=== PATIENT | female | born 1980 | race Hispanic/Latino ===

== ENCOUNTER 2017-01-02 03:22 | Inpatient (IN) | payer OTHER ==
[2017-01-02] VITALS (11 sets, daily range): BP systolic 136–157; BP diastolic 75–94
[~2017-01-02] VITALS: Ht 149.9 cm; Wt 94.8 kg
[~2017-01-02 03:22] MED LIST: FLEXERIL OR; NO; PERCOCET 5/325M1 TAB PO; PRENATABS RX PO
--- NOTE | 2017-01-02 03:31 | NUR ---
PT ARRIVED WITH C/O CONTRACTIONS 07/30. PT NEEDS COACHING TO BREATH THROUGH CONTRACTIONS. PT CHANGED INTO GOWN AND ATTEMPTED TO VOID. SIGNIFICANT OTHER AT BEDSIDE. SVE PERFORMED /+3 INTACT. EFM REMOVED. PT TRANSPORTED ON BED TO BIRTHING ROOM 1.
--- NOTE | 2017-01-02 03:36 | NUR ---
ENTERED BIRTHING ROOM 1 0335. PT STATES BABY IS COMING. NOTED TO BE ON PERINEUM UP TO EYES. GLOVED APPLIED. INFANT DELIVERED UP TO SHOULDERS. NOTED NUCHAL X1. ENCOURAGED PT NOT TO PUSH TO REDUCE. PT PUSHED THROUGH NUCHAL. DELIVERED AT 0336. PLACED ON MOTHER'S ABDOMEN. INFANT DRIED AND STIMULATED TO BREATH. SPONTANEOUS CRY NOTED. AWAITING PLACENTA. INFANT AND MOTHER IN STABLE CONDITION.
--- NOTE | 2017-01-02 03:58 | NUR ---
0337 ED NOTIFIED OF DELIVERY. DR. BRADY NOTIFIED OF NURSE DELIVERY AND AWAITING PLACENTA DELIVERY AT 0342. DR. BRADY EN ROUTE. PLACENTA DELIVERED INTACT AT 0344. PITOCIN 10 UNITS OF IM DELIVERED LEFT THIGH. DR. BRADY AT BEDSIDE AT 0358. PERINEUM INTACT BY MD EVALUATION.
--- NOTE | 2017-01-02 05:28 | NUR ---
PT OOB TO BR AT 0510 TO VOID. PT TOLERATED WELL. NO VOID AT THIS TIME. ENCOURAGED PT TO ATTEMPT TO VOID EVERY 2-3 HOURS AND PERFORM ASH CARE. EDCATED PT THAT BLEEDING WILL BE LIKE HEAVY PERIOD WITH SMALL CLOTS AND TO CALL IF SATURATES A PAD IN AN HOUR OR PASSES A CLOT BIGGER THEN A GOLF BALL. ASH CARE PROVIDED. GOWN CHANGED. PT AMBULATES TO WINDOW TO NURSURY TO WATCH INFANT BE WEIGHED. PT TO ROOM 203 AT 0528 IN STABLE CONDITION. PT C/O PAIN- WILL MEDICATED PER ORDERS. ICE WATER AND JUICE PROVIDED. PT'S MOTHER AND SPOUSE AT BEDSIDE.
--- NOTE | 2017-01-02 07:30 | NUR ---
REST IN BED, WANTS TO SLEEP, NO REQUESTS, ALLOWED TO REST.
--- NOTE | 2017-01-02 08:54 | NUR ---
SITS IN BED FEEDING , FINISHED BRESAKFAST, JUICE PROVIDED.
--- NOTE | 2017-01-02 09:50 | NUR ---
OOB TO VOID, ASH CARE DONE, BACK TO BED W/O PROBLEM.
--- NOTE | 2017-01-02 11:30 | NUR ---
OOB IN ROOM CARING FOR INFANT, TALKING WITH FAMILY.
--- NOTE | 2017-01-02 14:30 | NUR ---
SITS QUIETLY IN BED, TALKS WITH VISITORS.
--- NOTE | 2017-01-02 17:10 | NUR ---
RESTS IN BED, S/O IN ROOM. NO REQUESTS.
--- NOTE | 2017-01-02 18:45 | NUR ---
REVIEWED WITH PT HOW TO VIEW EDUCATIONAL VIDEOS AND READ DISCHARGE PLAN INFORMATION FOR HERSELF AND . PT DENIES H/A, DENIES VISUAL DISTURBANCE.
--- NOTE | 2017-01-02 19:00 | NUR ---
ASSUMED CARE OF PT. REPORT RECEIVED FROM Rajat MCKINNON RN.
--- NOTE | 2017-01-02 19:30 | NUR ---
ASSESSMENT COMPLETED CHARTED. BP 142/88, PT DENIES ANY C/O HEADACHE, VISUAL DISTURBANCES, OR EPIGASTRIC DISCOMFORT. NON-PITTING EDEMA PRESENT IN BOTH LOWER EXTREMETIES, PULSES STRONG, NEGATIVE HOMANS, NO CLONUS PRESENT. BREAST SOFT, SMALL AMOUNT OF ECCHYMOSIS PRESENT AROUND LT NIPPLE FROM . PT IS VOIDING AND PERFORMING SELF PERICARE WITHOUT DIFFICULTY; + BM; CARING FOR INFANT APPROPRIATELY, POSITIVE BONDING OBSERVED. PT DENIES ANY C/O DISCOMFORT AT THIS TIME. PT ENCOURAGED TO VIEW INSTRUCTIONAL VIDEOS AND READ D/C PLANNING PAPERS; VERBALIZED UNDERSTANDING. CALLBELL WITHIN REACH.
--- NOTE | 2017-01-02 20:50 | NUR ---
PT C/O ABD. CRAMPING, RETING PAIN LEVEL AT 4:10, MEDICATED ORDERED WITH MOTRIN 600 MG PO. PT NOW SITTING UP IN BED VIEWING INSTRUCTIONAL VIDEOS.
--- NOTE | 2017-01-02 22:00 | NUR ---
PT NOW RESTING QUIETLY IN BED WITH IN ARMS. VERBALIZED RELIEF OF PAIN FROM MOTRIN GIVEN EARLIER. OFFERS NO FURTHER C/O DISCOMFORT AT THIS TIME. CONTINUES VIEWING VIDEOS.
--- NOTE | 2017-01-02 23:18 | NUR ---
D/C PLANNING PAPERS FOR "MOTHER" WERE REVIEWED WITH PT AND PAPERS SIGNED. PT STATES THAT SHE WILL READ D/C PLANNING PAPERS FOR BABY IN AM.
--- NOTE | 2017-01-02 23:55 | NUR ---
PT SITTING UP IN BED BOTTLEFEEDING . DENIES ANY C/O DISCOMFORT AT THIS TIME.
--- NOTE | 2017-01-03 02:30 | NUR ---
CONTINUES RESTING QUIELTY IN BED. CARING FOR APPROPORIATELY. DENIES ANY C/O DISCOMFORT AT THIS TIME.
--- NOTE | 2017-01-03 04:20 | NUR ---
PT SITTING UP IN BED BOTTLEFEEDING , DENIES ANY C/O DISCOMFORT AT THIS TIME.
[2017-01-03 06:09] LABS: HEMATOCRIT 36.9 % (37.0-47.0); HEMOGLOBIN 12.4 g/dl (12.0-16.0); IMMATURE GRANULOCYTES 0.6 % (0.0-1.0); MEAN CELL VOLUME 91.1 fL CALC (80.0-100.0); MEAN CORPUSCULAR HGB 30.6 pG CALC (26.0-32.0); MEAN CORPUSCULAR HGB CONC 33.6 g/L CALC (32.0-36.0); NEUT# 7.45 thou/uL (2.00-7.15); RED BLOOD COUNT 4.05 mill/uL (4.20-5.60); RED CELL DISTRI WIDTH 14.6 % (11.5-15.5)
[2017-01-03 06:10] VITALS: BP 148/92
--- NOTE | 2017-01-03 06:10 | NUR ---
VS CHARTED: T.97.0, P. 91, R. 20, BP 148/92, O2 SAT 98%. PT DENIES ANY C/O HEADACHE, VISUAL DISTURBANCES, OR EPIGASTRIC DISCOMFORT. DENIES ANY C/O DISCOMFORT AT THIS TIME. DEFENSE ANALYST WAS ON UNIT TO DRAW BLOOD FOR CBC.
--- NOTE | 2017-01-03 06:55 | NUR ---
REPORT GIVEN TO Yuval NEAL RN. PT CONTINUES RESTING QUIELTY IN BED. CARING FOR APPROPRIATELY THROUGHOUT SHIFT.
--- NOTE | 2017-01-03 08:18 | NUR ---
ASSESSMENT CHARTED; PATIENT DENIES ANY PAIN OR NEEDS AT THIS TIME. DR. BRADY IN TO SEE PATIENT.
--- NOTE | 2017-01-03 10:41 | NUR ---
DISCHARGE TEACHING REVIEWED WITH PATIENT AND PATIENT VERBALIZED UNDERSTANDING AND NO QUESTIONS OR CONCERNS AT THIS TIME.
--- NOTE | 2017-01-03 11:15 | NUR ---
TDAP VACCINE AND DEPO SHOT ADMINISTERED TO PATIENT REQUESTED; PATIENT TOLERATED WELL AND DENIES ANY PAIN AT THIS TIME. CRANBERRY JUICE PROVIDED FOR PATIENT REQUESTED.
--- NOTE | 2017-01-03 12:38 | NUR ---
PATIENT SITTING IN BED WITH SIGNIFICANT OTHER BEDSIDE; PATIENT DENIES ANY PAIN OR NEEDS AT THIS TIME.
--- NOTE | 2017-01-03 13:55 | NUR ---
Discharge instructions given and reviewed. Pt. verbalizes understanding. Discharged in stable condition via Wheelchair to Home accompanied by volunteer.
== END 2017-01-03 13:55 | disposition home or self-care (01) | DRG 775 ==
LOC: OB 03:22 → OBOP 03:22 → OB 03:35
PROC: 10E0XZZ Delivery of Products of Conception, External Approach (ICD-10-PCS; principal; 2017-01-02)
DX: O62.3 Precipitate labor (principal); Z37.0 Single live birth; Z3A.38 38 weeks gestation of pregnancy

== ENCOUNTER 2018-05-03 10:27 | Emergency (ER) | payer BC ==
[~2018-05-03] VITALS: Ht 149.9 cm; Wt 95.0 kg
[2018-05-03] MEDS ORDERED: BACTRIM DS1 TAB PO (11:02)
[2018-05-03] MEDS ORDERED: ADVANCED E PO (11:03)
[2018-05-03] MEDS ORDERED: PEPCID20 MG PO (11:39)
[2018-05-03] MEDS ORDERED: MEDDOSEPAK PO (11:39)
[2018-05-03] MEDS ORDERED: BENADRYL 50MG C50 MG PO (11:39)
[2018-05-03 11:50] VITALS: BP 154/75
== END 2018-05-03 11:50 | disposition home or self-care (01) | DRG 916 ==
LOC: ED 10:27
DX: T78.40XA Allergy, unspecified, initial encounter (principal); X58.XXXA Exposure to other specified factors, initial encounter

== ENCOUNTER 2020-05-25 15:25 | Observation (INO) | payer MEDICAID ==
[~2020-05-25] VITALS: Ht 149.9 cm; Wt 75.2 kg
[~2020-05-25 15:25] MED LIST changes: +ADVANCED E PO; +BACTRIM DS1 TAB PO; +BENADRYL 50MG C50 MG PO; +MEDDOSEPAK PO; +PEPCID20 MG PO
[2020-05-25] MEDS ORDERED: CLEOCIN300 MG PO (15:55)
[2020-05-25] MEDS ORDERED: MOTRIN800 MG PO (15:55)
[2020-05-25 17:27] LABS: HEMATOCRIT 36.9 % (37.0-47.0); IMMATURE GRANULOCYTES 0.2 % (0.0-5.0); MEAN CELL VOLUME 88.9 fL CALC (80.0-100.0); MEAN CORPUSCULAR HGB 28.9 pG CALC (26.0-32.0); MEAN CORPUSCULAR HGB CONC 32.5 g/dL CAL (32.0-36.0); NEUT# 7.75 thou/uL (2.00-7.15); RED BLOOD COUNT 4.15 mill/uL (4.20-5.60); RED CELL DISTRI WIDTH 12.8 % (11.5-15.5)
[2020-05-25 17:54] LABS: ANION GAP 12 (6-22 (CALC)); BUN 9 mg/dL (7-17); BUN/CREATININE RATIO 20 (12-20 (CALC)); CARBON DIOXIDE 25 mmol/l (22-30); CHLORIDE 103 mmol/l (95-108); CREATININE 0.5 mg/dL (0.5-1.0); GFR > 60 ML/MIN (>=60 (CALC)); GFR FOR AFR.AMER. > 60 ML/MIN (>=60 (CALC)); POTASSIUM 3.5 mmol/l (3.5-5.1); SODIUM 136 mmol/l (137-146)
[2020-05-25 18:20] VITALS: BP 112/75
[2020-05-26 04:46] VITALS: BP 116/82
[2020-05-26 05:26] LABS: HEMOGLOBIN 11.5 g/dl (12.0-16.0); IMMATURE GRANULOCYTES 0.2 % (0.0-5.0); MEAN CELL VOLUME 89.6 fL CALC (80.0-100.0); MEAN CORPUSCULAR HGB 28.6 pG CALC (26.0-32.0); MEAN CORPUSCULAR HGB CONC 31.9 g/dL CAL (32.0-36.0); NEUT# 6.86 thou/uL (2.00-7.15); RED BLOOD COUNT 4.02 mill/uL (4.20-5.60); RED CELL DISTRI WIDTH 12.8 % (11.5-15.5)
[2020-05-26 05:57] LABS: ANION GAP 9 (6-22 (CALC)); BUN 10 mg/dL (7-17); BUN/CREATININE RATIO 24 (12-20 (CALC)); CARBON DIOXIDE 23 mmol/l (22-30); CHLORIDE 108 mmol/l (95-108); CREATININE 0.4 mg/dL (0.5-1.0); GFR > 60 ML/MIN (>=60 (CALC)); GFR FOR AFR.AMER. > 60 ML/MIN (>=60 (CALC)); POTASSIUM 3.8 mmol/l (3.5-5.1); SODIUM 137 mmol/l (137-146)
[2020-05-26 08:06] VITALS: BP 119/84
[2020-05-26] MEDS ORDERED: CLINDAMYCIN HY300 MG (12:23)
[2020-05-26 15:54] VITALS: BP 117/79
[2020-05-26 19:28] VITALS: BP 122/84
[2020-05-27 05:04] VITALS: BP 125/82
[2020-05-27 10:04] VITALS: BP 115/79
[2020-05-27 16:05] VITALS: BP 112/75
[2020-05-27 20:20] VITALS: BP 120/79
[2020-05-28 04:00] VITALS: BP 128/81
[2020-05-28 08:19] VITALS: BP 119/79
[2020-05-28] MEDS ORDERED: LORTAB5 PO ×2 (11:30→14:55)
[2020-07-18] MEDS ORDERED: CIPROFLOXACN500 MG PO (09:21)
== END 2020-05-28 13:45 | disposition home or self-care (01) ==
LOC: ED 15:25 → ED-I 16:50 → ED 17:03 → ED-I 17:04 → MS2 17:04
PROVIDERS: Student in an Organized Health Care Education/Training Program; ADMIT Internal Medicine; ATTEND Internal Medicine
DX: N61.1 Abscess of the breast and nipple (principal); R92.8 Other abnormal and inconclusive findings on diagnostic imaging of breast; Z11.59 Encounter for screening for other viral diseases
CPT/HCPCS: G0378; J3370

== ENCOUNTER 2021-10-23 14:14 | Observation (INO) | payer MEDICAID ==
[~2021-10-23] VITALS: Ht 149.9 cm; Wt 70.0 kg
[~2021-10-23 14:14] MED LIST changes: +CIPROFLOXACN500 MG PO; +CLEOCIN300 MG PO; +CLINDAMYCIN HC150 MG PO; +CLINDAMYCIN HY300 MG; +LORTAB5 PO; +MOTRIN800 MG PO
--- NOTE | 2021-10-23 15:10 | NUR ---
PT ESCORTED TO ROOM FOR EVAL OF BREAST PAIN
--- NOTE | 2021-10-23 16:10 | NUR ---
PT SITTING IN RM AWAITING RESULTS. CALL LIGHT WITHIN REACH.
[2021-10-23 17:00] LABS: URINE BILIRUBIN - DIPSTICK NEGATIVE (NEGATIVE); URINE BLOOD DIPSTICK TRACE-INTACT (NEGATIVE); URINE COLOR YELLOW; URINE GLUCOSE - DIPSTICK NEGATIVE (NEGATIVE); URINE KETONE NEGATIVE (NEGATIVE); URINE LEUK ESTERASE NEGATIVE (NEGATIVE); URINE PH 6.5 (4.5-8.0); URINE PROTEIN - DIPSTICK NEGATIVE (NEG-TRACE); URINE UROBILINOGEN - DIPSTICK 0.2 E.U./dL (0.2)
[2021-10-23 17:02] LABS: URINE NITRITE - DIPSTICK NEGATIVE (Negative)
--- NOTE | 2021-10-23 17:10 | NUR ---
PT SITTING IN RM AWAITING RESULTS. CALL LIGHT WITHIN REACH.
[2021-10-23 17:49] LABS: HEMATOCRIT 37.5 % (37.0-47.0); HEMOGLOBIN 12.5 g/dl (12.0-16.0); IMMATURE GRANULOCYTES 0.2 % (0.0-5.0); MEAN CELL VOLUME 90.1 fL CALC (80.0-100.0); MEAN CORPUSCULAR HGB CONC 33.3 g/dL CAL (32.0-36.0); NEUT# 8.69 thou/uL (2.00-7.15); RED BLOOD COUNT 4.16 mill/uL (4.20-5.60); RED CELL DISTRI WIDTH 12.2 % (11.5-15.5)
--- NOTE | 2021-10-23 18:10 | NUR ---
PT SITTING IN RM AWAITING RESULTS. CALL LIGHT WITHIN REACH.
[2021-10-23 18:13] LABS: ALBUMIN 3.9 g/dL (3.2-5.0); ALKALINE PHOSPHATASE 139 u/l (38-126); ANION GAP 9 (6-22 (CALC)); BILIRUBIN, TOTAL 0.5 mg/dL (0.0-1.4); BUN 8 mg/dL (7-17); BUN/CREATININE RATIO 17 (12-20 (CALC)); CARBON DIOXIDE 26 mmol/l (22-30); CHLORIDE 108 mmol/l (95-108); CREATININE 0.5 mg/dL (0.5-1.0); GFR > 60 ML/MIN (>=60 (CALC)); GFR FOR AFR.AMER. > 60 ML/MIN (>=60 (CALC)); POTASSIUM 3.5 mmol/l (3.5-5.1); SGOT/AST 29 u/l (14-36); SODIUM 140 mmol/l (137-146); TOTAL PROTEIN 7.7 g/dL (6.3-8.2)
--- NOTE | 2021-10-23 19:10 | NUR ---
PT SITTING IN RM AWAITING RESULTS. CALL LIGHT WITHIN REACH.
--- NOTE | 2021-10-23 20:10 | NUR ---
PT SITTING IN RM AWAITING ADMISSION AT THIS TIME. CALL LIGHT WITHIN REACH.
--- NOTE | 2021-10-23 20:48 | NUR ---
Admission Note Report Given to: GENARO WRIGHT Transported by: X Wheelchair Stretcher Transported with: X Nurse Transporter X Patent IV O2 Sql Application Developer Location: X ICU MS2
[2021-10-23 21:03] VITALS: BP 143/89
--- NOTE | 2021-10-23 21:03 | NUR ---
PT ARRIVED TO FLOOR VIA WHEELCHAIR ACCOMPAINED BY ER STAFF. PT ADMITTED WITH LEFT BREAST ABSCESS. REDNESS NOTED AROUND PT AREOLA WITH DIPPLING INWARD OF NIPPLE, AREA PAINFUL AND WARM TO TOUCH. PT TEARFUL. CURRENT PAIN LEVEL 8/10 WITH MINIMAL RELIEF FROM LORTAB GIVEN IN ED. NOTIFIED DR. RUIZ ORDERS RECEIVED AT THIS TIME, WILL MEDICATE WHEN MEDICATIONS AVAILABLE. IV SITE APPEARS HEALTHY, FLUSHED WELL. PT IS ALERT AND ORIENTED X4. SKIN INTACT. PT AMBULATED INDEPENDENTLY WITH STEADY GAIT. PT ORIENTED TO ROOM AND CALL LIGHT SYSTEM. DISCUSSED POC AND NPO AFTER MIDNIGHT, PT VERBALIZED UNDERSTANDING. CALL LIGHT WITHIN REACH. WILL CONTINUE TO MONITOR.
--- NOTE | 2021-10-23 21:30 | NUR ---
PRN DILUADID PROFILED AND PT DECLINED AT THIS TIME. EDUCATED PT ON REPORTING PAIN AND PAIN MANAGEMENT. PT VERBALIZED UNDERSTANDING. NOT APPARENT DISTRESS NOTED. RESPIRATIONS EVEN AND UNLABORED. CALL LIGHT WITHIN REACH. WILL CONTINUE TO MONITOR.
[2021-10-24] VITALS (11 sets, daily range): BP systolic 114–153; BP diastolic 68–90
--- NOTE | 2021-10-24 00:12 | NUR ---
PT RESTING IN BED WITH EYES CLOSED. PT WAKES EASILY. DENIES ANY PAIN OR DISCOMFORT AT THIS TIME. NO APPARENT DISTRESS NOTED. IV ABT INITIATED. CALL LIGHT WITHIN REACH. WILL CONTINUE TO MONITOR.
--- NOTE | 2021-10-24 02:35 | NUR ---
PT NOTED RESTING IN BED WITH EYES CLOSED. NPO AT THIS TIME. NO APPARENT DISTRESS NOTED. IVF INFUSING WITHOUT DIFFICULTY. CALL LIGHT WITHIN REACH. WILL CONTINUE TO MONITOR.
--- NOTE | 2021-10-24 06:20 | NUR ---
PT RESTING IN BED. NO APPARENT DISTRESS NOTED. PT ASKED IF SHE WAS HAVING ANY PAIN AND PT STATES "I'M FINE". IV ABT INITIATED. PT DENIES ANY CURRENT WANTS OR NEEDS. PT REMAINS NPO. CALL LIGHT WITHIN REACH. WILL CONTINUE TO MONITOR. PT ALSO MADE AWARE OF ROOM ASSIGNMENT ON MEDSURG UNIT FOLLOWING PROCEDURE. PT VERBALIZED UNDERSTANDING.
--- NOTE | 2021-10-24 09:27 | NUR ---
PT ARRIVED FROM PACU. BEDSIDE REPORT RECIEVED FROM AYANNA ALDRICH. PT DENIES PAIN. DRAINAGE PRESENT ON DRESSING, MARKED. NO S/S OF DISTRESS NOTED
--- NOTE | 2021-10-24 14:00 | NUR ---
PT RESITNG IN BED, DENIES NEEDS AT THIS TIME.
--- NOTE | 2021-10-24 18:10 | NUR ---
DRESSING CHANGE COMPLETED PER ORDER. WET TO DRY, 1 GUAZE 4X4 USED FOR PACKING, WITH ABD PAD PLACED AND SECURED OVER.
--- NOTE | 2021-10-24 19:30 | NUR ---
Received report from AYANNA Schwarz. Assumed care of patient. Patient is laying in bed in high adams, resting with no s/s of distress or discomfort, no c/o pain at this time, but very drowsy. Will continue to monitor.
--- NOTE | 2021-10-24 23:31 | NUR ---
PATIENT LAYING IN BED RESTING, STILL DROWSY AND NO C/O PAIN. NO S/S OF DISTRESS OR DISCOMFORT NOTED, WILL CONTINUE TO MONITOR.
[2021-10-25] VITALS: BP 133/84; BP 133/88
[2021-10-25 04:00] VITALS: BP 132/81
--- NOTE | 2021-10-25 05:30 | NUR ---
PT PRE-MEDICATED FOR PAIN 45 MINS PRIOR TO PERFORMING DRESSING CHANGES FOR COMFORT. OLD DRESSING REMOVED (ABD PAD & 1 4X4 GUAZE PACKING) MODERATE AMOUNT OF SEROSANGUINEOUS DRAINAGE NOTED ON DRESSING, NO ODOR NOTED. SITE CLEANSED WITH NS AND PATTED DRY. DRESSING CHANGE COMPLETED PER ORDER, WOUND PACKED WITH ABCESS PACKED WITH 1 4X4 WET TO DRY & SITE COVERED WITH AN ABD PAD. PT TOLERATED PROCEDURE WELL.
--- NOTE | 2021-10-25 08:00 | NUR ---
SHIFT CHANGE REPORT, PT AWAKE ALERT AND ORIENTED RESTING IN BED, DENIES PAIN, DRESSING TO LEFT BREAST CDI, IVF INFUSING TO SITE IN LAC, DIET NEEDS DISCUSSED, CALL MENDOZA IN REACH AND LOCKED IN LOWEST POSITION.
--- NOTE | 2021-10-25 10:00 | NUR ---
DR SARA ARCHIBALD, DISCUSSED PLAN OF CARE, PT STATED UNDERSTANDING, HE ALSO SAID PT MAY REMOVE DRESSING AND SHOWER THEN REPLACE DRESSING.
[2021-10-25] MEDS ORDERED: PERCOCET 5/325M1 TAB PO (10:05)
[2021-10-25] MEDS ORDERED: CLINDAMYCIN300 M1 PO (10:05)
[2021-10-25 10:27] VITALS: BP 136/76
--- NOTE | 2021-10-25 12:00 | NUR ---
PT NOTIFIED OF DRESSING CHANGE PROCEDURE AND STATED UNDERSTANDING, OLD DRESSING WITH PACKING REMOVED, PT SHOWERED, THEN NEW W-D DRESSING APPLIED ORDERED, PT TOLERATED WELL SHE WAS PRE-MEDICATED, ALL NEEDS ADDRESSED.
[2021-10-25 15:41] VITALS: BP 114/78
--- NOTE | 2021-10-25 16:00 | NUR ---
RESTING IN BED ALL NEEDS ADDRESSED, CALL MENDOZA IN REACH.
--- NOTE | 2021-10-25 18:50 | NUR ---
REPORT RECEIVED FROM Broderick GALDAMEZ RN
[2021-10-25 19:00] VITALS: BP 128/93
--- NOTE | 2021-10-25 22:04 | NUR ---
WOUND CARE PROVIDED AT THIS TIME, W-D PACKING WITH ABD FOR CONFORT. PT TOLERATED WELL. PREMEDICATED.
[2021-10-26] VITALS: BP 129/88
--- NOTE | 2021-10-26 | NUR ---
PATIENT ANTIBIOTIC HUNG AT THIS TIME. CALL LIGHT AND BEDSIDE TABLE WITHIN REACH. NO APPARENT DISTRESS.
[2021-10-26 04:00] VITALS: BP 124/80
--- NOTE | 2021-10-26 05:20 | NUR ---
PATIENT UP TO THE RESTROOM AT THIS TIME. NO NEEDS VOICED. AMBULATED WITH STEADY GAIT. ADVISED TO CALL WHEN FISNIHED.
[2021-10-26 08:04] VITALS: BP 117/70
--- NOTE | 2021-10-26 08:15 | NUR ---
PT EATING BREAKFAST UPON ENTERING ROOM. VITALS ALLOWED AT THIS TIME. DRESSING ON LEFT BREAST IS CDI. PT STATES NO PAIN AT THIS TIME. PT IS A&OX3. IV SITE LOCATED ON THE [facility] 22G SALINE LOCKED. FLUSHED WITH NO RESISTANCE. CALL LIGHT AND PERSONAL ITEMS ARE WITHIN REACH. FALL PRECAUTIONS ARE IN PLACE.
--- NOTE | 2021-10-26 08:53 | NUR ---
AT BEDSIDE DISCUSSING WITH PT ABOUT HOME HEALTH
--- NOTE | 2021-10-26 09:54 | NUR ---
PT DRESSING CHANGE PERFORMED NO PURULENT DRAINAGE NOTED, OR ANY FOUL ODOR SMELL. PT IN PAIN BUT DENIED ANY PAIN MEDICATION. PT ALLOWED TYENENOL FOR PAIN. PT ANXIOUS ABOUT WOUND CHANGES AT HOME. UNABLE TO GET APPROVED FOR HOMEHEALTH DUE TO INSURANCE. WOUND PACKED WITH 4X4 GAUZE COVERED WITH ABD PAD. PT ALLERGIC TO PLASTIC TAPE USED PAPER TAPE INSTEAD. CALL LIGHT WITHIN REACH.
--- NOTE | 2021-10-26 10:40 | NUR ---
Discharge instructions given. Patient verbalizes understanding of same. Discharged in stable condition via Wheelchair to Home ACCOMPANIED BY AYANNA SINGH. All belongings sent with pt. PT INDICATED UNDERSTANDING TOWARDS WOUND CARE EDUCATION. SUPPLIES WERE GIVEN TO PT. EXPLAINED PT TO COME BACK TO ER IF LEFT BREAST BECOMES INFECTED. IV REMOVED 22G LFA EVERYTHING INTACT.
== END 2021-10-26 10:50 | disposition home or self-care (01) ==
LOC: ED 14:14 → ED-I 18:20 → ED 18:53 → ICU 18:53 → MS2 10-24 09:27
PROVIDERS: Emergency Medicine; ADMIT Surgery; ATTEND Surgery
DX: N61.1 Abscess of the breast and nipple (principal); Z20.822 Contact with and (suspected) exposure to COVID-19
CPT/HCPCS: G0378